=== PATIENT | male | born 1970 | race Caucasian/White ===

== ENCOUNTER 2017-02-25 10:04 | Emergency (ER) | payer OTHER ==
--- NOTE | 2017-02-25 11:06 | EDM.PDOC ---
ED HPI GENERAL MEDICAL PROBLEM - General Chief Complaint: Back Pain or Injury Stated Complaint: LOW BACK PAIN Time Seen by Provider: 02/25/17 10:55 Source of Information: Reports: Patient History Limitations: Reports: No Limitations - History of Present Illness INITIAL COMMENTS - FREE TEXT/NARRATIVE: HISTORY AND PHYSICAL: History of present illness: [Patient comes to emergency room for evaluation of left-sided low back pain. He woke up with this pain yesterday morning and took the day off work in late in the day. He feels as though his symptoms have worsened today. He denies any radiation of this pain to his abdomen or groin. No right-sided pain. He denies any pain shooting down his buttock or into his legs. He's had no numbness or tingling. He has had no weakness. No fever or chills. No chest pain, shortness of breath, or difficulty breathing. No abdominal pain nausea or vomiting. He denies any change in his bowel or bladder. No diarrhea or constipation. No burning with urination, penile discharge or hematuria. Has a history of osteoarthritis of both hips.] Review of systems: As per history of present illness and below otherwise all systems reviewed and negative. Past medical history: As per history of present illness and as reviewed below otherwise noncontributory. Surgical history: As per history of present illness and as reviewed below otherwise noncontributory. Social history: No reported history of drug or alcohol abuse. Family history: As per history of present illness and as reviewed below otherwise noncontributory. Physical exam: HEENT: Atraumatic, normocephalic. mucous membranes moist. Lungs: Clear to auscultation, breath sounds equal bilaterally. Heart: S1S2, regular rate and rhythm. Abdomen: Soft, nondistended, nontender. Negative for masses, guarding or rebound. Negative for costovertebral tenderness bilaterally. Pelvis: Stable nontender. Genitourinary: Deferred. Rectal: Deferred. Back: No spinal tenderness or step-offs on palpation. Pain is to left low back at the waistline. Extremities: Atraumatic. No hip tenderness with palpation. Neuro: Awake, alert, oriented. Cranial nerves II through XII unremarkable. Motor and sensory unremarkable throughout. Exam nonfocal. Diagnostics: [UA w/ micro] Therapeutics: [Toradol 60mg IM] Impression: [Low back pain] Plan: [Discussed w/ patient that UA is negative, and cause of low back pain is unclear. Will treat as musculoskeletal at this time. He is given Toradol 60mg IM in ER, and Rx's for Cyclobenzaprine 10 mg #30 sig one by mouth 3 times a day when necessary spasm zero refills, hydrocodone 5/325 mg #30 sig one by mouth every 4-6 hours as needed for pain 0 RF's. Recommend heating pad alternative w/ ice packs prn. Return to ER as needed as discussed. ] Definitive disposition and diagnosis as appropriate pending reevaluation and review of above. Lower Back Pain Score (Numeric/FACES): 10 - Related Data Allergies Allergy/AdvReac Type Severity Reaction Status Date / Time No Known Allergies Allergy Verified 02/25/17 10:30 Home Meds: Home Meds . [No Known Home Meds] 02/25/17 [History] Past Medical History - Past Health History Medical/Surgical History: Denies Medical/Surgical History Social & Family History - Family History Family Medical History: Noncontributory - Tobacco Use Smoking Status *Q: Never Smoker - Caffeine Use Caffeine Use: Reports: Coffee Caffeine Use Comment: 1 cups - Recreational Drug Use Recreational Drug Use: No ED ROS GENERAL - Review of Systems Review Of Systems: ROS reveals no pertinent complaints other than HPI. ED EXAM,LOWER BACK PAIN/INJURY - Physical Exam Exam: See Below Course - Vital Signs Last Recorded V/S: Last Vital Signs Temp 97.9 F 02/25/17 10:33 Pulse 68 02/25/17 12:29 Resp 16 02/25/17 10:33 BP 93/67 02/25/17 12:29 Pulse Ox 94 L 02/25/17 12:29 - Orders/Labs/Meds Labs: Laboratory Tests 02/25/17 Range/Units 11:25 Urine Color YELLOW Urine Appearance CLEAR Urine pH 6.0 (5.0-8.0) Ur Specific Palmer 1.020 (1.001-1.035) Urine Protein NEGATIVE (NEGATIVE) mg/dL Urine Glucose (UA) NEGATIVE (NEGATIVE) mg/dL Urine Ketones NEGATIVE (NEGATIVE) mg/dL Urine Occult Blood NEGATIVE (NEGATIVE) Urine Nitrite NEGATIVE (NEGATIVE) Urine Bilirubin NEGATIVE (NEGATIVE) Urine Urobilinogen 0.2 (<2.0) EU/dL Ur Leukocyte Esterase NEGATIVE (NEGATIVE) Urine RBC NONE SEEN (0-2/HPF) Urine WBC NONE SEEN (0-5/HPF) Ur Epithelial Cells RARE (NONE-FEW) Urine Bacteria RARE (NEGATIVE) Meds: Medications Discontinued Medications Generic Name Dose Route Start Last Admin Trade Name Jesse PRN Reason Stop Dose Admin Ketorolac Tromethamine 60 mg 02/25/17 11:56 02/25/17 12:01 Toradol IM 02/25/17 11:57 60 mg ONETIME ONE Administration Departure - Departure Time of Disposition: 12:00 Disposition: Home, Self-Care 01 Condition: good Clinical Impression: Low back pain Qualifiers: Chronicity: acute Back pain laterality: left Sciatica presence: without sciatica Qualified Code(s): M54.5 - Low back pain - Discharge Information Instructions: Back Pain, Adult Referrals: PCP,Not In Area [Primary Care Provider] - Forms: ED Department Discharge Additional Instructions: The following information is given to patients seen in the emergency department who are being discharged to home. This information is to outline your options for follow-up care. We provide all patients seen in our emergency department with a follow-up referral. The need for follow-up, as well as the timing and circumstances, are variable depending upon the specifics of your emergency department visit. If you don't have a primary care physician on staff, we will provide you with a referral. We always advise you to contact your personal physician following an emergency department visit to inform them of the circumstance of the visit and for follow-up with them and/or the need for any referrals to a consulting specialist. The emergency department will also refer you to a specialist when appropriate. This referral assures that you have the opportunity for follow-up care with a specialist. All of these measure are taken in an effort to provide you with optimal care, which includes your follow-up. Under all circumstances we always encourage you to contact your private physician who remains a resource for coordinating your care. When calling for follow-up care, please make the office aware that this follow-up is from your recent emergency room visit. If for any reason you are refused follow-up, please contact the [facility] emergency department at and asked to speak to the emergency department charge nurse. [facility] [address] [place] [phone] Followup with primary care provider at the clinic listed above in 48-72 hours. Fill Rx's and take as prescribed. Alternate ibuprofen with hydrocodone to reduce inflammation. Alternate heating pad and ice packs as needed for discomfort. Return to ER as needed as discussed.
[2017-02-25] MEDS ORDERED: Ketorolac 60 MG/2 ML SDV IM ONE (11:56)
[2017-02-25 12:30] VITALS: BP 93/67
== END 2017-02-25 12:30 | disposition home or self-care (01) ==
LOC: MW.ED 10:04
DX: M54.5 Low back pain (principal); M16.0 Bilateral primary osteoarthritis of hip
CPT/HCPCS: 81001; 96372; 99283; J1885

== ENCOUNTER 2024-07-06 17:57 | Emergency (ER) | payer OTHER ==
[2024-07-06 19:54] VITALS: BP 132/66; PULSE 67
== END 2024-07-06 19:55 | disposition home or self-care (01) ==
LOC: MW.ED 17:57
DX: M25.522 Pain in left elbow (principal); Z75.8 Other problems related to medical facilities and other health care
CPT/HCPCS: 99282; 99283